=== PATIENT | male | born 1955 | race Caucasian/White ===

== ENCOUNTER → 2016-07-25 | Outpatient (REF) | payer MEDICARE, BC, OTHER ==
[~2016-07-25] MED LIST: ADVI200T PO; ASPI32ECTA PO; FLOM5CAP PO; LEXA1TAB2 PO; METO25TA74 PO; MOTR200T44 PO; PANT40TA2 PO; TYLE325T5 PO
== END ==
LOC: M LAB REF 16:33
PROVIDERS: ATTEND Physician Assistant
DX: N39.0 Urinary tract infection, site not specified (principal)

== ENCOUNTER → 2016-08-31 | Outpatient (REF) | payer MEDICARE, OTHER ==
[2016-08-31 15:47] LABS: ALBUMIN 3.8 GM/DL (3.2-5.2); ALBUMIN/GLOBULIN RATIO 1.23 (1.00-1.93); ALKALINE PHOSPHATASE 106 U/L (45-117); ALT/SGPT 41 U/L (12-78); ANION GAP 8 MEQ/L (8-16); AST/SGOT 35 U/L (15-37); BILIRUBIN,TOTAL 0.5 MG/DL (0.2-1.0); BLOOD UREA NITROGEN 23 MG/DL (7-18); CALCIUM LEVEL 8.6 MG/DL (8.8-10.2); CARBON DIOXIDE LEVEL 28 MEQ/L (21-32); CHLORIDE LEVEL 106 MEQ/L (98-107); CHOLESTEROL LEVEL 229 MG/DL (<200); CREATININE FOR GFR 1.06 MG/DL (0.70-1.30); GLOMERULAR FILTRATION RATE > 60.0 (>49); GLUCOSE, FASTING 115 MG/DL (80-110); POTASSIUM SERUM 4.4 MEQ/L (3.5-5.1); SODIUM LEVEL 142 MEQ/L (136-145); TOTAL PROTEIN 6.9 GM/DL (6.4-8.2); TRIGLYCERIDES LEVEL 145 MG/DL (<150)
== END ==
LOC: M SFHCSACK 09:14
PROVIDERS: ATTEND Physician Assistant
DX: I25.10 Atherosclerotic heart disease of native coronary artery without angina pectoris (principal); I10 Essential (primary) hypertension; E78.5 Hyperlipidemia, unspecified; E11.9 Type 2 diabetes mellitus without complications; E55.9 Vitamin D deficiency, unspecified

== ENCOUNTER → 2017-05-03 | Outpatient (REF) | payer MEDICARE, OTHER ==
[~2017-05-03] MED LIST changes: +ASPI325T24 PO; -ASPI32ECTA PO; +METO1TAB32 PO; -METO25TA74 PO; +VITA200016 PO
[2017-05-03 15:03] LABS: BASO # 0.1 10^3/uL (0.0-0.2); BASO % 0.7 % (0.0-1.0); EOS # 0.2 10^3/uL (0.0-0.50); EOS % 2.1 % (0.0-3.0); IMMATURE GRANULOCYTE % 0.4 % (0-0); LYMPH # 3.5 10^3/uL (1.5-4.5); LYMPH % 33.1 % (24.0-44.0); MEAN CORPUSCULAR HEMOGLOBIN 30.8 pg (27.0-33.0); MEAN CORPUSCULAR HGB CONC 34.3 g/dl (32.0-36.5); MEAN CORPUSCULAR VOLUME 89.8 fl (80.0-96.0); MONO # 0.6 10^3/uL (0.0-0.8); MONO % 5.9 % (0.0-5.0); NEUTROPHILS # 6.2 10^3/uL (1.8-7.7); NEUTROPHILS % 57.8 % (36.0-66.0); PLATELET COUNT, AUTOMATED 271 10^3/uL (150-450); RED CELL DISTRIBUTION WIDTH 12.6 % (11.5-14.5); WHITE BLOOD COUNT 10.7 10^3/uL (4.0-10.0)
[2017-05-03 15:16] LABS: ALBUMIN 3.9 GM/DL (3.2-5.2); ALBUMIN/GLOBULIN RATIO 1.22 (1.00-1.93); ALKALINE PHOSPHATASE 107 U/L (45-117); ALT/SGPT 48 U/L (12-78); ANION GAP 10 MEQ/L (8-16); AST/SGOT 15 U/L (7-37); BILIRUBIN,TOTAL 0.5 MG/DL (0.2-1.0); BLOOD UREA NITROGEN 23 MG/DL (7-18); CALCIUM LEVEL 8.6 MG/DL (8.8-10.2); CARBON DIOXIDE LEVEL 24 MEQ/L (21-32); CHLORIDE LEVEL 108 MEQ/L (98-107); CHOLESTEROL LEVEL 178 MG/DL (<200); CREATININE FOR GFR 1.23 MG/DL (0.70-1.30); GLOMERULAR FILTRATION RATE > 60.0 (>49); GLUCOSE, FASTING 152 MG/DL (80-110); POTASSIUM SERUM 4.5 MEQ/L (3.5-5.1); SODIUM LEVEL 142 MEQ/L (136-145); TOTAL PROTEIN 7.1 GM/DL (6.4-8.2); TRIGLYCERIDES LEVEL 200 MG/DL (<150)
== END ==
LOC: M SFHCSACK 08:18
PROVIDERS: ATTEND Physician Assistant
DX: E11.9 Type 2 diabetes mellitus without complications (principal); E78.5 Hyperlipidemia, unspecified; E55.9 Vitamin D deficiency, unspecified

== ENCOUNTER 2017-07-12 21:20 | Emergency (ER) | payer MEDICARE, BC, OTHER ==
[2017-07-12] MEDS: ONDANSETRON 4MG/2ML VIAL (J2405) IV (22:27)
[2017-07-12] MEDS: KETOROLAC 30 MG/ML VIAL (J1885) IV (22:27)
[2017-07-12] MEDS: NS 1,000 ML IV (22:28)
[2017-07-12 22:40] LABS: BASO % 0.3 % (0.0-1.0); HEMATOCRIT 46.2 % (42.0-52.0); HEMOGLOBIN 15.9 g/dl (14.0-18.0); IMMATURE GRANULOCYTE % 0.5 % (0-3.0); LYMPH # 0.9 10^3/uL (1.5-4.5); LYMPH % 6.3 % (24.0-44.0); MEAN CORPUSCULAR HEMOGLOBIN 30.2 pg (27.0-33.0); MEAN CORPUSCULAR HGB CONC 34.4 g/dl (32.0-36.5); MEAN CORPUSCULAR VOLUME 87.8 fl (80.0-96.0); MONO # 0.6 10^3/uL (0.0-0.8); MONO % 4.4 % (0.0-5.0); NEUTROPHILS % 88.5 % (36.0-66.0); PLATELET COUNT, AUTOMATED 244 10^3/uL (150-450); RED BLOOD COUNT 5.26 10^6/uL (4.30-6.10); RED CELL DISTRIBUTION WIDTH 12.6 % (11.5-14.5); WHITE BLOOD COUNT 13.6 10^3/uL (4.0-10.0)
[2017-07-12 22:50] LABS: INR 0.95; PROTHROMBIN TIME 12.8 SECONDS (12.4-14.5)
[2017-07-12 23:06] LABS: ALBUMIN 3.9 GM/DL (3.2-5.2); ALBUMIN/GLOBULIN RATIO 0.93 (1.00-1.93); ALKALINE PHOSPHATASE 128 U/L (45-117); ALT/SGPT 44 U/L (12-78); ANION GAP 10 MEQ/L (8-16); AST/SGOT 14 U/L (7-37); BILIRUBIN,DIRECT 0.1 MG/DL (0.0-0.2); BILIRUBIN,TOTAL 0.6 MG/DL (0.2-1.0); BLOOD UREA NITROGEN 13 MG/DL (7-18); CALCIUM LEVEL 8.8 MG/DL (8.8-10.2); CARBON DIOXIDE LEVEL 26 MEQ/L (21-32); CHLORIDE LEVEL 106 MEQ/L (98-107); CREATININE FOR GFR 1.42 MG/DL (0.70-1.30); GLOMERULAR FILTRATION RATE 54.1 (>49); GLUCOSE, FASTING 231 MG/DL (70-100); LIPASE 95 U/L (73-393); POTASSIUM SERUM 4.1 MEQ/L (3.5-5.1); SODIUM LEVEL 142 MEQ/L (136-145); TOTAL PROTEIN 8.1 GM/DL (6.4-8.2)
[2017-07-12 23:32] LABS: KETONE, URINE AUTO RFX 2+ mg/dL (NEGATIVE); LEUKOCYTE ESTERASE UR AUTO RFX NEGATIVE (NEGATIVE); MUCUS, URINE RFX SMALL (NEGATIVE); NITRITE, URINE AUTO RFX NEGATIVE (NEGATIVE); RBC, URINE AUTO RFX TNTC /HPF (0-3); SPECIFIC GRAVITY UR AUTO RFX 1.024 (1.002-1.035); SQUAM EPITHELIAL CELL UR AURFX 2 /HPF (0-6)
[2017-07-12 23:38] LABS: WBC, URINE AUTO RFX 15 /HPF (0-3)
== END 2017-07-13 00:08 | disposition home or self-care (01) ==
LOC: M ED 07-13 00:08
DX: N20.1 Calculus of ureter (principal); N28.1 Cyst of kidney, acquired; N23 Unspecified renal colic; R11.2 Nausea with vomiting, unspecified; R51 Headache; I51.9 Heart disease, unspecified; Z95.5 Presence of coronary angioplasty implant and graft; Z87.440 Personal history of urinary (tract) infections; Z79.899 Other long term (current) drug therapy; Z79.82 Long term (current) use of aspirin; Z79.84 Long term (current) use of oral hypoglycemic drugs
CPT/HCPCS: J2405

== ENCOUNTER 2017-08-06 18:45 | Emergency (ER) | payer MEDICARE, BC, OTHER ==
[2017-08-06] MEDS ORDERED: diphenhydrAMINE INJ 50MG/ML VIAL (J1200) As Ordered (19:32)
[2017-08-06] MEDS: HALOPERIDOL 5 MG/ML VIAL (J1630) IV (19:32)
[2017-08-06] MEDS: diphenhydrAMINE INJ 50MG/ML VIAL (J1200) IV (19:32)
[2017-08-06] MEDS ORDERED: HALOPERIDOL 5 MG/ML VIAL (J1630) As Ordered (19:33)
[2017-08-06] MEDS: NS 1,000 ML IV (19:45)
[2017-08-06 20:05] LABS: ANION GAP 8 MEQ/L (8-16); BLOOD UREA NITROGEN 16 MG/DL (7-18); CARBON DIOXIDE LEVEL 27 MEQ/L (21-32); CHLORIDE LEVEL 106 MEQ/L (98-107); CREATININE FOR GFR 1.17 MG/DL (0.70-1.30); GLOMERULAR FILTRATION RATE > 60.0 (>49); GLUCOSE, FASTING 158 MG/DL (70-100); POTASSIUM SERUM 3.9 MEQ/L (3.5-5.1); SODIUM LEVEL 141 MEQ/L (136-145)
== END 2017-08-06 21:15 | disposition home or self-care (01) ==
LOC: M ED 18:45
DX: H81.90 Unspecified disorder of vestibular function, unspecified ear (principal); I25.10 Atherosclerotic heart disease of native coronary artery without angina pectoris; E11.9 Type 2 diabetes mellitus without complications; E78.5 Hyperlipidemia, unspecified; K21.9 Gastro-esophageal reflux disease without esophagitis; Z87.442 Personal history of urinary calculi; Z95.1 Presence of aortocoronary bypass graft; Z86.79 Personal history of other diseases of the circulatory system
CPT/HCPCS: J1200

== ENCOUNTER → 2017-08-07 | Outpatient (REF) | payer MEDICARE, OTHER ==
[2017-08-07 14:21] LABS: BASO # 0.1 10^3/uL (0.0-0.2); BASO % 0.5 % (0.0-1.0); EOS # 0.3 10^3/uL (0.0-0.50); EOS % 2.5 % (0.0-3.0); HEMATOCRIT 41.6 % (42.0-52.0); HEMOGLOBIN 14.3 g/dl (14.0-18.0); IMMATURE GRANULOCYTE % 0.4 % (0-3.0); LYMPH # 4.3 10^3/uL (1.5-4.5); LYMPH % 34.9 % (24.0-44.0); MEAN CORPUSCULAR HEMOGLOBIN 30.5 pg (27.0-33.0); MEAN CORPUSCULAR HGB CONC 34.4 g/dl (32.0-36.5); MEAN CORPUSCULAR VOLUME 88.7 fl (80.0-96.0); MONO # 0.7 10^3/uL (0.0-0.8); MONO % 5.9 % (0.0-5.0); NEUTROPHILS # 6.8 10^3/uL (1.8-7.7); NEUTROPHILS % 55.8 % (36.0-66.0); PLATELET COUNT, AUTOMATED 230 10^3/uL (150-450); RED BLOOD COUNT 4.69 10^6/uL (4.30-6.10); RED CELL DISTRIBUTION WIDTH 12.9 % (11.5-14.5); WHITE BLOOD COUNT 12.2 10^3/uL (4.0-10.0)
[2017-08-07 14:38] LABS: ALBUMIN 3.6 GM/DL (3.2-5.2); ALBUMIN/GLOBULIN RATIO 1.16 (1.00-1.93); ALKALINE PHOSPHATASE 94 U/L (45-117); ALT/SGPT 49 U/L (12-78); ANION GAP 10 MEQ/L (8-16); AST/SGOT 19 U/L (7-37); BILIRUBIN,TOTAL 0.5 MG/DL (0.2-1.0); BLOOD UREA NITROGEN 13 MG/DL (7-18); CALCIUM LEVEL 8.3 MG/DL (8.8-10.2); CARBON DIOXIDE LEVEL 25 MEQ/L (21-32); CHLORIDE LEVEL 107 MEQ/L (98-107); CREATININE FOR GFR 0.98 MG/DL (0.70-1.30); GLOMERULAR FILTRATION RATE > 60.0 (>49); GLUCOSE, FASTING 126 MG/DL (70-100); POTASSIUM SERUM 4.1 MEQ/L (3.5-5.1); SODIUM LEVEL 142 MEQ/L (136-145); TOTAL PROTEIN 6.7 GM/DL (6.4-8.2)
[2017-08-07 14:49] LABS: ESTIMATED AVERAGE GLUCOSE 177 MG/DL (60-110); HEMOGLOBIN A1c 7.8 %
[2017-08-07 15:02] LABS: MAU/CREAT RATIO 6.4 MCG/MG (0.0-30.0)
[2017-08-07 15:15] LABS: TOTAL 25(OH) VITAMIN D 56.6 NG/ML (30.0-100.0)
== END ==
LOC: M SFHCSACK 08:17
DX: E55.9 Vitamin D deficiency, unspecified (principal); I10 Essential (primary) hypertension; E11.9 Type 2 diabetes mellitus without complications
CPT/HCPCS: 80053

== ENCOUNTER → 2018-07-28 | Outpatient (REF) | payer MEDICARE, OTHER ==
[~2018-07-28] MED LIST changes: -ASPI325T24 PO; +ASPI325T25 PO; +ATOR1TAB21; +FLOM0.4C39 PO; -FLOM5CAP PO; +MECL-68 PO; +METF500T13; +OMEP40CA2; -PANT40TA2 PO; +PANT40TA3 PO; +PERC5TAB12 PO; +ZOFR4TAB14 PO
[2018-07-28 15:00] LABS: BASO # 0.1 10^3/uL (0.0-0.2); BASO % 0.5 % (0.0-1.0); EOS # 0.3 10^3/uL (0.0-0.50); EOS % 2.7 % (0.0-3.0); HEMATOCRIT 44.4 % (42.0-52.0); HEMOGLOBIN 15.1 g/dl (13.5-17.5); LYMPH # 3.1 10^3/uL (1.5-4.5); LYMPH % 27.7 % (24.0-44.0); MEAN CORPUSCULAR HEMOGLOBIN 30.3 pg (27.0-33.0); MONO # 0.7 10^3/uL (0.0-0.8); MONO % 6.1 % (0.0-5.0); NEUTROPHILS # 6.9 10^3/uL (1.8-7.7); NEUTROPHILS % 62.6 % (36.0-66.0); PLATELET COUNT, AUTOMATED 268 10^3/uL (150-450); RED BLOOD COUNT 4.99 10^6/uL (4.30-6.10); WHITE BLOOD COUNT 11.1 10^3/uL (4.0-10.0)
[2018-07-28 15:13] LABS: ALBUMIN 4.1 GM/DL (3.2-5.2); ALT/SGPT 34 U/L (12-78); BILIRUBIN,TOTAL 0.9 MG/DL (0.2-1.0); BLOOD UREA NITROGEN 18 MG/DL (7-18); CALCIUM LEVEL 9.4 MG/DL (8.8-10.2); CARBON DIOXIDE LEVEL 23 MEQ/L (21-32); CHLORIDE LEVEL 105 MEQ/L (98-107); CHOLESTEROL LEVEL 133 MG/DL (<200); CHOLESTEROL RISK RATIO 3.325 (<5); CREATININE FOR GFR 0.99 MG/DL (0.70-1.30); GLOMERULAR FILTRATION RATE > 60.0 (>49); GLUCOSE, FASTING 124 MG/DL (70-100); HDL CHOLESTEROL 40 MG/DL (>40); LDL CHOLESTEROL 67 MG/DL (<100); NON-HDL-C 93 MG/DL; POTASSIUM SERUM 4.4 MEQ/L (3.5-5.1); SODIUM LEVEL 141 MEQ/L (136-145); TOTAL PROTEIN 7.1 GM/DL (6.4-8.2); TRIGLYCERIDES LEVEL 128 MG/DL (<150)
[2018-07-28 15:14] LABS: TOTAL 25(OH) VITAMIN D 55.1 NG/ML (30.0-100.0)
[2018-07-28 15:24] LABS: MALB URINE SIEMENS 52.8 MG/L; MAU/CREAT RATIO 18.2 MCG/MG (0.0-30.0)
[2018-07-28 15:34] LABS: HEMOGLOBIN A1c 7.5 %
== END ==
LOC: M SFHCSACK 09:20
PROVIDERS: ATTEND Physician Assistant
DX: I10 Essential (primary) hypertension (principal); E11.9 Type 2 diabetes mellitus without complications; E78.5 Hyperlipidemia, unspecified; E55.9 Vitamin D deficiency, unspecified

== ENCOUNTER → 2018-09-11 | Outpatient (REF) | payer MEDICARE, OTHER ==
[~2018-09-11] MED LIST changes: +ASPI-255 PO; -ASPI325T25 PO
[2018-09-11 19:47] LABS: CALCIUM LEVEL 8.8 MG/DL (8.8-10.2); CREATININE FOR GFR 1.33 MG/DL (0.70-1.30); POTASSIUM SERUM 4.3 MEQ/L (3.5-5.1)
[2018-09-11 20:01] LABS: BASO # 0.1 10^3/uL (0.0-0.2); BASO % 0.4 % (0.0-1.0); EOS % 0.1 % (0.0-3.0); HEMOGLOBIN 15.4 g/dl (13.5-17.5); LYMPH # 1.7 10^3/uL (1.5-4.5); LYMPH % 9.6 % (24.0-44.0); MEAN CORPUSCULAR HEMOGLOBIN 30.5 pg (27.0-33.0); MEAN CORPUSCULAR HGB CONC 34.2 g/dl (32.0-36.5); MEAN CORPUSCULAR VOLUME 89.1 fl (80.0-96.0); MONO # 1.6 10^3/uL (0.0-0.8); MONO % 8.8 % (0.0-5.0); NEUTROPHILS # 14.5 10^3/uL (1.8-7.7); NEUTROPHILS % 80.4 % (36.0-66.0); PLATELET COUNT, AUTOMATED 213 10^3/uL (150-450); RED BLOOD COUNT 5.05 10^6/uL (4.30-6.10)
== END ==
LOC: M LABDRWAD 19:06
PROVIDERS: ATTEND Physician Assistant
DX: N41.0 Acute prostatitis (principal)

== ENCOUNTER 2019-01-27 09:04 | Emergency (ER) | payer MEDICARE, BC, OTHER ==
[~2019-01-27] VITALS: Ht 170.2 cm; Wt 87.7 kg
[2019-01-27] MEDS ORDERED: OZEM2INJ (09:13)
[2019-01-27 11:15] LABS: BASO % 0.3 % (0.0-1.0); EOS # 0.3 10^3/uL (0.0-0.5); EOS % 2.5 % (0.0-3.0); HEMATOCRIT 44.5 % (42.0-52.0); LYMPH # 1.2 10^3/uL (1.5-5.0); LYMPH % 11.6 % (24.0-44.0); MEAN CORPUSCULAR HGB CONC 33.7 g/dl (32.0-36.5); MONO # 0.7 10^3/uL (0.0-0.8); MONO % 6.6 % (0.0-5.0); NEUTROPHILS # 8.2 10^3/uL (1.5-8.5); NEUTROPHILS % 78.6 % (36.0-66.0); PLATELET COUNT, AUTOMATED 212 10^3/uL (150-450); WHITE BLOOD COUNT 10.5 10^3/uL (4.0-10.0)
[2019-01-27 11:32] LABS: ALBUMIN 3.3 GM/DL (3.2-5.2); ALT/SGPT 38 U/L (12-78); AMYLASE 50 U/L (25-115); BILIRUBIN,DIRECT 0.1 MG/DL (0.0-0.2); BILIRUBIN,TOTAL 0.7 MG/DL (0.2-1.0); BLOOD UREA NITROGEN 8 MG/DL (7-18); CALCIUM LEVEL 8.9 MG/DL (8.8-10.2); CARBON DIOXIDE LEVEL 28 MEQ/L (21-32); CHLORIDE LEVEL 107 MEQ/L (98-107); CREATININE FOR GFR 1.01 MG/DL (0.70-1.30); GLOMERULAR FILTRATION RATE > 60.0 (>49); GLUCOSE, FASTING 126 MG/DL (70-100); LIPASE 89 U/L (73-393); SODIUM LEVEL 137 MEQ/L (136-145); TOTAL PROTEIN 7.3 GM/DL (6.4-8.2)
[2019-01-27] MEDS: GASTROGRAFIN SOLUTION 30ML PO SCH ×2 (11:36→12:05)
[2019-01-27] MEDS ORDERED: ISOVUE-370 76% 100ML VIAL (Q9967) As Ordered ONE (12:55)
--- NOTE | 2019-01-27 13:38 | REP ---
Clinical: Umbilical pain. Technique: Axial contrast enhanced images from the lung bases to the pubic symphysis using oral (per protocol) and 100 ml Isovue 370 intravenous contrast material with coronal and sagittal re-formations. Comparison: 09/30/2017. Findings: Lung bases are clear. Visualized heart and pericardium normal. Diffuse fatty infiltration to the liver noted without focal hepatic lesion. Spleen, pancreas, bilateral adrenal glands are normal. Cholelithiasis noted without acute cholecystitis. Kidneys demonstrate cortical scarring and bilateral cysts unchanged from prior examination and without hydronephrosis or perinephric stranding. The enteric system is without obstruction or acute inflammatory process. Scattered sigmoid diverticula noted without acute diverticulitis. Pelvis demonstrates normal bladder and age appropriate prostate/seminal vesicles. Small fat containing inguinal hernias are again identified. The patient is status post ventral hernia repair with mesh in stable position as compared to prior examination. No ascites. No free air. No adenopathy. Abdominal aorta and vasculature without aneurysm or dissection. Musculoskeletal structures demonstrate age-related changes without focal abnormality. Impression: 1. No obvious acute abdominopelvic pathology appreciated. 2. Cholelithiasis. 3. Stable renal cysts. 4. Scattered sigmoid diverticula without acute diverticulitis. 5. No ascites, focal inflammatory stranding, or adenopathy. Electronically Signed by Jonathan Seals MD 01/27/2019 01:29 P
[2019-01-27] MEDS ORDERED: KETOROLAC 30 MG/ML VIAL (J1885) IV ONE (13:45)
[2019-01-27 14:18] VITALS: BP 115/82
== END 2019-01-27 14:21 | disposition home or self-care (01) ==
LOC: M ED 09:04
DX: K42.9 Umbilical hernia without obstruction or gangrene (principal); S39.011A Strain of muscle, fascia and tendon of abdomen, initial encounter; I10 Essential (primary) hypertension; K21.9 Gastro-esophageal reflux disease without esophagitis; I25.10 Atherosclerotic heart disease of native coronary artery without angina pectoris; Z98.61 Coronary angioplasty status; E78.49 Other hyperlipidemia; Z79.82 Long term (current) use of aspirin; Y92.89 Other specified places as the place of occurrence of the external cause; Y93.9 Activity, unspecified; Y99.9 Unspecified external cause status
CPT/HCPCS: 74177; 80053; 82150; 82248; 83690; 85025; 96374; 99284; J1885; Q9963; Q9967

== ENCOUNTER → 2019-01-28 | Outpatient (REF) | payer MEDICARE, OTHER ==
[~2019-01-28] MED LIST changes: -MECL-68 PO; +MECL1TAB31 PO; -OMEP40CA2; +OMEP40CA97; +OZEM2INJ
[2019-01-28 14:39] LABS: RED BLOOD COUNT 4.84 10^6/uL (4.30-6.10); WHITE BLOOD COUNT 8.7 10^3/uL (4.0-10.0)
[2019-01-28 14:40] LABS: BASO # 0.1 10^3/uL (0.0-0.2); BASO % 0.6 % (0.0-1.0); EOS # 0.4 10^3/uL (0.0-0.5); EOS % 4.8 % (0.0-3.0); HEMATOCRIT 44.6 % (42.0-52.0); HEMOGLOBIN 15.1 g/dl (13.5-17.5); LYMPH # 1.9 10^3/uL (1.5-5.0); LYMPH % 22.2 % (24.0-44.0); MEAN CORPUSCULAR HEMOGLOBIN 31.2 pg (27.0-33.0); MEAN CORPUSCULAR HGB CONC 33.9 g/dl (32.0-36.5); MEAN CORPUSCULAR VOLUME 92.1 fl (80.0-96.0); MONO # 0.7 10^3/uL (0.0-0.8); MONO % 7.5 % (0.0-5.0); NEUTROPHILS # 5.6 10^3/uL (1.5-8.5); NEUTROPHILS % 64.6 % (36.0-66.0); PLATELET COUNT, AUTOMATED 243 10^3/uL (150-450)
[2019-01-28 14:53] LABS: ALBUMIN 3.4 GM/DL (3.2-5.2); ALT/SGPT 65 U/L (12-78); BILIRUBIN,TOTAL 0.5 MG/DL (0.2-1.0); BLOOD UREA NITROGEN 15 MG/DL (7-18); CALCIUM LEVEL 8.8 MG/DL (8.8-10.2); CARBON DIOXIDE LEVEL 27 MEQ/L (21-32); CHLORIDE LEVEL 106 MEQ/L (98-107); CHOLESTEROL LEVEL 226 MG/DL (<200); CHOLESTEROL RISK RATIO 4.612 (<5); CREATININE FOR GFR 0.99 MG/DL (0.70-1.30); GLOMERULAR FILTRATION RATE > 60.0 (>49); GLUCOSE, FASTING 142 MG/DL (70-100); HDL CHOLESTEROL 49 MG/DL (>40); LDL CHOLESTEROL 147 MG/DL (<100); NON-HDL-C 177 MG/DL; POTASSIUM SERUM 4.7 MEQ/L (3.5-5.1); SODIUM LEVEL 138 MEQ/L (136-145); TOTAL 25(OH) VITAMIN D 24.3 NG/ML (30.0-100.0); TOTAL PROTEIN 6.8 GM/DL (6.4-8.2); TRIGLYCERIDES LEVEL 152 MG/DL (<150)
== END ==
LOC: M SFHCSACK 08:46
PROVIDERS: ATTEND Physician Assistant
DX: I10 Essential (primary) hypertension (principal); E78.5 Hyperlipidemia, unspecified; E55.9 Vitamin D deficiency, unspecified

== ENCOUNTER → 2020-09-16 | Outpatient (CLI) | payer MEDICARE, BC, OTHER ==
[~2020-09-16] MED LIST changes: +PANT40TA29 PO; -PANT40TA3 PO
--- NOTE | 2020-09-16 12:49 | REP ---
INDICATION: N20.0-KIDNEY STONES. COMPARISON: Multiple the latest 01/27/2019 TECHNIQUE: Noncontrast enhanced stone protocol. FINDINGS: The lung bases are clear. There is cholelithiasis status quo. Limited evaluation of the solid intra-abdominal organs show no gross abnormalities. Limited evaluation of the pancreas and adrenal glands show no gross abnormalities. Limited evaluation of the kidney show no significant changes. There are bilateral renal cysts and bilateral nonobstructing nephroliths. There is unchanged chronic change to the right renal cortex. There is no significant change in appearance of the abdominal aorta or para-aortic regions. There is no free fluid or free air. There is no significant change in appearance of the bowel loops or the mesenteries. There are no urinary bladder calcifications. The osseous structures are stable. IMPRESSION: There is no evidence of acute disease. Chronic changes as described above. <Electronically signed by Matteo Jose > 09/16/20 [id number]
== END ==
LOC: M RAD 12:13
PROVIDERS: ATTEND Surgery
DX: N20.0 Calculus of kidney (principal); K80.20 Calculus of gallbladder without cholecystitis without obstruction

== ENCOUNTER 2021-02-02 09:41 | Inpatient (IN) | payer MEDICARE, BC, OTHER ==
[~2021-02-02] VITALS: Ht 170.2 cm; Wt 178.4 kg
[~2021-02-02 09:41] MED LIST changes: +OMEP40CA4; -OMEP40CA97
[2021-02-02 13:03] LABS: HEMATOCRIT 45.8 % (42.0-52.0); HEMOGLOBIN 15.7 g/dl (13.5-17.5); MEAN CORPUSCULAR HEMOGLOBIN 31.7 pg (27.0-33.0); MEAN CORPUSCULAR HGB CONC 34.3 g/dl (32.0-36.5); MEAN CORPUSCULAR VOLUME 92.5 fl (80.0-96.0); PLATELET COUNT, AUTOMATED 218 10^3/uL (150-450); RED BLOOD COUNT 4.95 10^6/uL (4.30-6.10); WHITE BLOOD COUNT 17.9 10^3/uL (4.0-10.0)
[2021-02-02 13:38] LABS: BILIRUBIN,DIRECT 0.3 MG/DL (0.0-0.2); BILIRUBIN,TOTAL 1.3 MG/DL (0.2-1.0); CALCIUM LEVEL 9.1 MG/DL (8.8-10.2); CREATININE FOR GFR 1.64 MG/DL (0.70-1.30); GLOMERULAR FILTRATION RATE 45.3 (>49); POTASSIUM SERUM 4.2 MEQ/L (3.5-5.1); TOTAL PROTEIN 7.5 GM/DL (6.4-8.2)
[2021-02-02] MEDS ORDERED: ACETAMINOPHEN *IV* 1,000 MG in IV 1 EA IV ONE (14:20)
[2021-02-02] MEDS ORDERED: cefTRIAXone SOD 1 GM in D5W MINI-BAG PLUS 50 ML IV ONE (14:20)
[2021-02-02] MEDS ORDERED: NS 1,000 ML IV ONE (14:20)
--- NOTE | 2021-02-02 14:41 | REP ---
INDICATION: R flank pain yesterday, now with abd pain/n/v. hx of pyelo COMPARISON: Comparison CT study abdomen and pelvis September 16, 2020. TECHNIQUE: Helical scanning is acquired and 3 mm axial images were reformatted. Coronal and sagittal MPR images were generated and reviewed. 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 The lung bases are clear on axial CT images. There is a small hiatal hernia. Normal adrenal glands are seen. A few punctate calcifications are noted distributed in the pancreas consistent with previous pancreatitis. There are the 3 fairly large gallstones visible in the gallbladder lumen. The liver and the spleen are normal in size homogeneous in texture. No adrenal lesion is seen. There are simple cysts in the left kidney which are felt to be unchanged from the prior study. There is also cyst at the upper pole the right kidney unchanged. There is however new moderate right-sided hydronephrosis and hydroureter. This is due to the presence of 3 separately identifiable obstructive calculi in the right mid ureter. The largest and lowest of these is 0.4 cm in greatest diameter. There is Lyudmila ureteral and perinephric edema. The distal right ureter is normal in caliber. There is an intrarenal calculus in the mid position of the left kidney 4 mm in diameter as well consistent with a nonobstructive calculus. No left-sided ureteral calculus is observed. No bladder calculus is seen. There is dystrophic calcification in the prostate gland. Seminal vesicles are unremarkable. A normal appendix is seen in the right pelvis. There is mild left colonic diverticulosis. No abdominal wall defect is seen. IMPRESSION: 1. Moderate new right-sided hydronephrosis and hydroureter due to the presence of 3 right mid ureteral calculi stacked up next to 1 another. There is Lyudmila ureteral and perinephric stranding. 2. Cholelithiasis 3. Bilateral renal cortical cysts. 4. Intrarenal nephrolithiasis left kidney without hydronephrosis. 5. Left colonic diverticulosis. 6. Hiatal hernia. <Electronically signed by Burton Mackay > 02/02/21 [id number]
[2021-02-02] MEDS ORDERED: MORPHINE 2 MG/ML 1ML VIAL (J2270) IV PRN (15:45)
--- NOTE | 2021-02-02 15:45 | SMCUROLCON ---
Urology Consultation General Date of Consultation 02/02/21 Reason For Consultation asked to see re right ureteral stones causing obstruction and pain History of Present Illness Pain and n/v. ER visit. Ct done. Right ureteral stones causing obstruction. H/o stones. H/o urethral stent as well. Past Medical History Medical History stones stroke cad s/p stent pfo htn hyperlipidemia diabetes gerd urethral stricture left renal abscess Surgical Hstory stone surgeries urethral stent surgeries Family History Family History not pertinent Social History * Smoker: non-smoker Allergies Allergies: Coded Allergies: No Known Allergies (Unverified , 03/21/17) Review of Systems General: Denies: Chills Constitutional: Denies: Fever Eyes: Denies: Vision change ENT: Denies: Head Aches Skin: Denies: Rash Pulmonary: Denies: Dyspnea Cardiovascular: Denies Chest Pain Gastrointestinal: Reports: Nausea, Vomiting Genitourinary: Denies: Dysuria Hematologic: Denies: Bruising Endocrine: Denies: Polydipsia Musculoskeletal: Denies: Neck Pain Neurological: Denies: Weakness Psych: Reports: Mood Normal Physical Examination General Exam: Alert, Cooperative EYE EXAM: Conjunctiva & lids normal ENT EXAM: Atraumatic Neck Exam: Supple Chest Exam: Clear to auscultation Heart Exam: Rate Normal Abdomen Exam: Soft, Tenderness Extremity Exam: No: Cyanosis Skin Exam: Nl turgor and temperature Neuro Exam: Normal Speech Psych Exam: Mental status NL Vital Signs/I&O Vital Signs Date Time Temp Pulse Resp B/P (MAP) Pulse Ox O2 Delivery O2 Flow Rate FiO2 02/02/21 15:38 97.9 85 16 123/68 (86) 99 Room Air Laboratory Data 24H Labs Laboratory Tests 2 02/02/21 10:39: Urine Color YELLOW, Urine Appearance HAZY, Urine pH 5.0, Urine Specific [place] 1.024, Urine Protein 1+H, Urine Glucose (UA) NEGATIVE, Urine Ketones 1+H, Urine Blood 1+H, Urine Nitrite NEGATIVE, Urine Bilirubin NEGATIVE, Urine Urobilinogen 2.0H, Urine Leukocyte Esterase 2+H, Urine WBC (Auto) 21H, Urine RBC (Auto) 14H, Urine Hyaline Casts (Auto) 1, Urine Bacteria (Auto) NEGATIVE, Urine Squamous Epithelial Cells 7, Urine Mucus (Auto) SMALL, Urine Sperm (Auto) 02/02/21 11:23: Bedside Glucose (Misc Panel) 135H 9/9/21 12:51: Nucleated Red Blood Cells % (auto) 0.0, Anion Gap 7L, Glomerular Filtration Rate 45.3L, Calcium Level 9.1, Total Bilirubin 1.3H, Direct Bilirubin 0.3H, Aspartate Amino Transf (AST/SGOT) 10, Alanine Aminotransferase (ALT/SGPT) 19, Alkaline Phosphatase 80, Total Protein 7.5, Albumin 4.0, Albumin/Globulin Ratio 1.1 02/02/21 15:00: CBC/BMP Laboratory Tests 02/02/21 12:51 Microbiology Microbiology 02/02/21 Urine Culture, Received Pending Assessment Ct shows right ureteral stones causing hydronephrosis. Pain and n/v today. Wbc and creatinine elevated. No fevers. Plan Urology plan is cysto with stent placement sometime today. Covid testing pending. Discussed with ER provider and OR charge nurse. Will see pt soon. Hospitalist service to kindly admit pt. VASYL HOLLIDAY MD Feb 02, 2021 15:45
[2021-02-02 15:48] LABS: RSV AMPLIFICATION NEGATIVE (NEGATIVE)
[2021-02-02] MEDS ORDERED: DEXTROSE 50% 50 ML SYRINGE IV PRN (16:20)
[2021-02-02] MEDS ORDERED: GLUCAGON INJ 1MG VIAL SC PRN (16:20)
[2021-02-02] MEDS ORDERED: GLUCOSE 4GM CHEW TABLET PO PRN (16:20)
--- NOTE | 2021-02-02 16:37 | HPEPDOC ---
General Date of Admission Feb 02, 2021 at 15:42 Date of Service: Feb 02, 2021 Chief Complaint The patient is a 65-year-old male admitted with a reason for visit of Guillermo, Ureteric Stone. History of Present Illness 65-year-old male with past medical history of kidney stones, urethral stricture status post reconstruction, CAD status post stent in 2009, hypertension, hyperlipidemia, CVA, PFO, GERD, brain aneurysm, diabetes, short-term memory loss, left renal abscess in July 2020 presented to the emergency room 2 day history of severe right lower back pain sharp aching and colicky in nature 01/03 by intensity radiating across the side to the groin associated with nausea and several episodes of vomiting. He was found to have right ureteral stone with right hydronephrosis. On my interview patient says that the pain has already gone and says the stone has likely moved. He says that the pain went away while he was sitting in the waiting room. Patient was noted to be febrile at 100.7 in the ED. urology was consulted and plan is for him to go to OR for cystoscopy and stent placement. CT scan of the abdomen and pelvis showed moderate right-sided hydronephrosis and hydroureter. This is due to the presence of 3 separately identifiable obstructive calculi in the right mid,ureter. The largest and lowest of these is 0.4 cm in greatest diameter. There is Lyudmila ureteral and perinephric edema. The distal right ureter is normal in caliber. There is an intrarenal calculus in the mid position of the left kidney 4 mm in diameter as well consistent with a nonobstructive calculus. No left-sided ureteral calculus is observed. Home Medications Scheduled Aspirin (Aspirin EC) 325 Mg Tabec, 325 MG PO DAILY, (Reported) Cholecalciferol (Vitamin D3) (Vitamin D3) 2,000 Unit Cap, 50,000 UNIT PO 1XWK, (Reported) Metformin HCl (Metformin HCl) 500 Mg Tab, 500 MG BID, (Reported) Semaglutide (Ozempic) 0.25 Mg/0.2 Ml Pen.injctr, QWEEK, (Reported) Miscellaneous Medications Omeprazole (Omeprazole) 40 Mg Cap, (Reported) Allergies Coded Allergies: No Known Allergies (Unverified , 03/21/17) Past Medical History Medical History kidney stones, urethral stricture status post reconstruction, CAD status post stent in 2009, hypertension, hyperlipidemia, CVA, PFO, GERD, brain aneurysm, diabetes, short-term memory loss, left renal abscess in July 2020, diverticulosis, hiatal hernia, gallstones Surgical History COLONOSCOPY 03/2017 MULTIPLE URETHRAL DILATIONS AND DVIUS 1978 - 1998 PENILE SKIN GRAFT FOR URETHRAL STRICTURE 1998 UROLUME STENT PLACED DUE TO URETHRAL STRICTURE 1999 RECONSTRUCTED URETHRA 11/2017 URETHRAL SCOPE 02/2019 Family History FATHER: , WHEN PANCREAS EXPLODED MOTHER: , CANCER UNKNOWN Social History * Smoker: former Smoker Alcohol: rarely Drugs: denies A-FIB/CHADSVASC A-FIB History Current/History of A-Fib/PAF?: No Review of Systems Constitutional: Denies: Chills, Fever, Night Sweats Eyes: Denies: Pain, Vision change ENT: Denies: Head Aches, Ear Pain, Dysphagia Skin: Denies: Rash, Lesions, Breakdown Pulmonary: Denies: Dyspnea, Cough Cardiovascular: Denies: Chest Pain, Palpitations, Orthopnea, Paroxysmal Noc. Dyspnea, Lt Headedness Gastrointestinal: Reports: Nausea, Vomiting, Abdominal Pain Genitourinary: Denies: Dysuria, Frequency, Incontinence, Hematuria Hematologic: Denies: Bruising, Bleeding Excessively Musculoskeletal: Reports: Back Pain; Denies: Neck Pain, Joint Pain, Muscle Pain, Spasms Physical Examination General Exam: Positive: Alert, Cooperative, No Acute Distress Eye Exam: Positive: PERRLA, Conjunctiva & lids normal, EOMI; Negative: Sclera icteric ENT Exam: Positive: Atraumatic, Mucous membr. moist/pink, Pharynx Normal Neck Exam: Positive: Supple; Negative: JVD, thyromegaly Chest Exam: Positive: Clear to auscultation, Normal air movement Heart Exam: Positive: Rate Normal, Regular Rhythm, Normal S1, Normal S2; Negative: Murmurs, Rubs Abdomen Exam: Positive: Normal bowel sounds, Soft; Negative: Tenderness Extremity Exam: Positive: Normal pulses; Negative: Clubbing, Cyanosis, Edema Skin Exam: Positive: Nl turgor and temperature; Negative: Breakdown, Lesion Psych Exam: Positive: Memory Intact, Oriented x 3 Vital Signs Vital Signs Date Time Temp Pulse Resp B/P (MAP) Pulse Ox O2 Delivery O2 Flow Rate FiO2 02/02/21 16:14 100.7 85 18 132/66 (88) 100 Room Air Laboratory Data Labs 24H Laboratory Tests 2 02/02/21 10:39: Urine Color YELLOW, Urine Appearance HAZY, Urine pH 5.0, Urine Specific [place] 1.024, Urine Protein 1+H, Urine Glucose (UA) NEGATIVE, Urine Ketones 1+H, Urine Blood 1+H, Urine Nitrite NEGATIVE, Urine Bilirubin NEGATIVE, Urine Urobilinogen 2.0H, Urine Leukocyte Esterase 2+H, Urine WBC (Auto) 21H, Urine RBC (Auto) 14H, Urine Hyaline Casts (Auto) 1, Urine Bacteria (Auto) NEGATIVE, Urine Squamous Epithelial Cells 7, Urine Mucus (Auto) SMALL, Urine Sperm (Auto) 02/02/21 11:23: Bedside Glucose (Misc Panel) 135H 02/02/21 12:51: Nucleated Red Blood Cells % (auto) 0.0, Anion Gap 7L, Glomerular Filtration Rate 45.3L, Calcium Level 9.1, Total Bilirubin 1.3H, Direct Bilirubin 0.3H, Aspartate Amino Transf (AST/SGOT) 10, Alanine Aminotransferase (ALT/SGPT) 19, Alkaline Phosphatase 80, Total Protein 7.5, Albumin 4.0, Albumin/Globulin Ratio 1.1 02/02/21 15:00: Coronavirus (COVID-19)(PCR) NEGATIVE, Influenza Type A (RT-PCR) NEGATIVE, Influenza Type B (RT-PCR) NEGATIVE, Respiratory Syncytial Virus (PCR) NEGATIVE 02/02/21 16:15: Bedside Glucose (Misc Panel) 129H CBC/BMP Laboratory Tests 02/02/21 12:51 Microbiology Microbiology 02/02/21 Urine Culture, Received Pending Assessment/Plan 65-year-old male with past medical history of kidney stones, urethral stricture status post reconstruction, CAD status post stent in 2009, hypertension, hyperlipidemia, CVA, PFO, GERD, brain aneurysm, diabetes, short-term memory loss, left renal abscess in July 2020 presented to the emergency room 2 day history of severe right lower back pain sharp aching and colicky in nature 8/10 by intensity radiating across the side to the groin associated with nausea and several episodes of vomiting. He was found to have right ureteral stone with right hydronephrosis. Right ureteric stone with right hydronephrosis Dr. Bee from urology consulted and he plans on taking the patient to the OR for stent placement Elevated white count will give ceftriaxone Urine sent for culture GUILLERMO Likely due to obstructive uropathy though I do not have any recent blood work for the past 2 years. We will have to see if his creatinine improves with relief of obstruction and hydration that he got in the ED. History of hypertension Not on any meds at present BP low normal in the ED History of hyperlipidemia Has resolved Not on any meds at present Diabetes We will hold Metformin We will give lispro as per sliding scale once patient is out of OR and taking p.o. History of CAD status post stent We will continue aspirin GERD We will continue me Plan / VTE VTE Prophylaxis Ordered?: Yes Madelyn Neff MD Feb 02, 2021 16:37
[2021-02-02] MEDS ORDERED: CONRAY-60 60% 50ML VIAL (Q9961) As Ordered ONE (16:44)
[2021-02-02] MEDS ORDERED: ONDANSETRON 4MG/2ML VIAL As Ordered ONE (16:45)
[2021-02-02] MEDS ORDERED: dexameTHASONE 4 MG/ML 1ML VIAL (J1100 PER 1MG) As Ordered ONE (16:45)
[2021-02-02] MEDS ORDERED: fentaNYL 100 MCG/2 ML INJECTION (J3010) As Ordered ONE (16:45)
[2021-02-02] MEDS ORDERED: propofoL 200 MG/20 ML VIAL As Ordered ONE (16:45)
[2021-02-02] MEDS ORDERED: MIDAZOLAM INJ 2MG/2ML VIAL (J2250 PER 1MG) As Ordered ONE (16:45)
[2021-02-02] MEDS ORDERED: LIDOCAINE 2% 100MG/5ML SDV (FOR ANES.) As Ordered ONE (16:45)
[2021-02-02] MEDS ORDERED: ONDANSETRON 4MG/2ML VIAL IV PRN ×2 (17:05→17:25)
--- NOTE | 2021-02-02 17:07 | REP ---
INDICATION: STENT PLACEMENT. COMPARISON: None. TECHNIQUE: Single spot view. 0.01 seconds of fluoroscopy time is reported. FINDINGS: A single last image hold fluoroscopically obtained spot radiograph of the abdomen documents right ureteral stent position. IMPRESSION: Procedural imaging. <Electronically signed by Burton Mackay > 02/02/21 0540
--- NOTE | 2021-02-02 17:16 | IPNPDOC ---
Date Seen The patient was seen on 02/02/21. Progress Note pt s/p right stent placement gu plan is ureteroscopy with stone extraction in future, not this admit ivf iv antibiotic repeat blood work pt on hospitalist service thanks [phone] VS, I&O, 24H, Fishbone Vital Signs/I&O Vital Signs Date Time Temp Pulse Resp B/P (MAP) Pulse Ox O2 Delivery O2 Flow Rate FiO2 02/02/21 16:14 100.7 85 18 132/66 (88) 100 Room Air Laboratory Data 24H LABS Laboratory Tests 2 02/02/21 10:39: Urine Color YELLOW, Urine Appearance HAZY, Urine pH 5.0, Urine Specific [place] 1.024, Urine Protein 1+H, Urine Glucose (UA) NEGATIVE, Urine Ketones 1+H, Urine Blood 1+H, Urine Nitrite NEGATIVE, Urine Bilirubin NEGATIVE, Urine Urobilinogen 2.0H, Urine Leukocyte Esterase 2+H, Urine WBC (Auto) 21H, Urine RBC (Auto) 14H, Urine Hyaline Casts (Auto) 1, Urine Bacteria (Auto) NEGATIVE, Urine Squamous Epithelial Cells 7, Urine Mucus (Auto) SMALL, Urine Sperm (Auto) 02/02/21 11:23: Bedside Glucose (Misc Panel) 135H 02/02/21 12:51: Nucleated Red Blood Cells % (auto) 0.0, Anion Gap 7L, Glomerular Filtration Rate 45.3L, Calcium Level 9.1, Total Bilirubin 1.3H, Direct Bilirubin 0.3H, Aspartate Amino Transf (AST/SGOT) 10, Alanine Aminotransferase (ALT/SGPT) 19, Alkaline Phosphatase 80, Total Protein 7.5, Albumin 4.0, Albumin/Globulin Ratio 1.1 02/02/21 15:00: Coronavirus (COVID-19)(PCR) NEGATIVE, Influenza Type A (RT-PCR) NEGATIVE, Influenza Type B (RT-PCR) NEGATIVE, Respiratory Syncytial Virus (PCR) NEGATIVE 02/02/21 16:15: Bedside Glucose (Misc Panel) 129H CBC/BMP Laboratory Tests 02/02/21 12:51 Microbiology Microbiology 02/02/21 Urine Culture, Received Pending VASYL HOLLIDAY MD Feb 02, 2021 17:16
[2021-02-02] MEDS ORDERED: fentaNYL 100 MCG/2 ML INJECTION (J3010) IV PRN (17:25)
[2021-02-02] MEDS ORDERED: oxyCODONE 5MG TAB PO PRN (17:25)
[2021-02-02] MEDS ORDERED: METOCLOPRAMIDE INJ 10MG/2ML VIAL (J2765 PER 1) IV PRN (17:25)
[2021-02-02] MEDS ORDERED: LR 1,000 ML IV SCH (17:25)
[2021-02-02 17:45] VITALS: BP 129/68
[2021-02-02 18:15] VITALS: BP 116/63
[2021-02-02] MEDS: D5W/0.45% SODIUM CHLORIDE 1,000 ML IV SCH (18:27)
[2021-02-02] MEDS: HumaLOG INSULIN (NovoLOG) PER UNIT SC SCH (18:44)
[2021-02-02 18:45] VITALS: BP 116/64
[2021-02-02] MEDS: PHENAZOPYRIDINE 100 MG TAB PO SCH (20:38)
[2021-02-02] MEDS: oxyBUTYnin 5 MG TAB PO SCH (20:38)
[2021-02-02 20:45] VITALS: BP 138/78
[2021-02-02] MEDS ORDERED: HumaLOG INSULIN (NovoLOG) PER UNIT SC SCH (21:00)
[2021-02-02] MEDS ORDERED: OZEM2INJ SC (21:07)
[2021-02-02] MEDS ORDERED: OMEP1CAP73 PO (21:07)
[2021-02-02] MEDS ORDERED: METF-838 PO (21:07)
[2021-02-02] MEDS ORDERED: HOME MED LIST COMPLETE! XX SCH (21:10)
[2021-02-02 21:45] VITALS: BP 105/60
[2021-02-02 22:48] VITALS: BP 136/82
[2021-02-03] MEDS: D5W/0.45% SODIUM CHLORIDE 1,000 ML IV SCH (04:59)
[2021-02-03 06:00] VITALS: BP 118/67
[2021-02-03 06:09] LABS: BASO % 0.1 % (0.0-1.0); HEMATOCRIT 38.2 % (42.0-52.0); LYMPH # 0.9 10^3/uL (1.5-5.0); LYMPH % 7.6 % (24.0-44.0); MEAN CORPUSCULAR HEMOGLOBIN 31.4 pg (27.0-33.0); MEAN CORPUSCULAR HGB CONC 34.6 g/dl (32.0-36.5); MEAN CORPUSCULAR VOLUME 90.7 fl (80.0-96.0); MONO # 0.7 10^3/uL (0.0-0.8); MONO % 5.4 % (2.0-8.0); NEUTROPHILS # 10.6 10^3/uL (1.5-8.5); NEUTROPHILS % 86.5 % (36.0-66.0); PLATELET COUNT, AUTOMATED 192 10^3/uL (150-450); RED BLOOD COUNT 4.21 10^6/uL (4.30-6.10); WHITE BLOOD COUNT 12.3 10^3/uL (4.0-10.0)
[2021-02-03 06:10] LABS: BLOOD UREA NITROGEN 17 MG/DL (7-18); CALCIUM LEVEL 8.3 MG/DL (8.8-10.2); CARBON DIOXIDE LEVEL 24 MEQ/L (21-32); CHLORIDE LEVEL 109 MEQ/L (98-107); CREATININE FOR GFR 0.96 MG/DL (0.70-1.30); GLOMERULAR FILTRATION RATE > 60.0 (>49); GLUCOSE, FASTING 143 MG/DL (70-100); POTASSIUM SERUM 4.2 MEQ/L (3.5-5.1); SODIUM LEVEL 139 MEQ/L (136-145)
[2021-02-03 06:21] LABS: HEMOGLOBIN 13.2 g/dl (13.5-17.5)
[2021-02-03] MEDS: oxyBUTYnin 5 MG TAB PO SCH (08:41)
[2021-02-03] MEDS: HumaLOG INSULIN (NovoLOG) PER UNIT SC SCH ×2 (08:41→12:00)
[2021-02-03] MEDS: PHENAZOPYRIDINE 100 MG TAB PO SCH (08:41)
[2021-02-03] MEDS ORDERED: FLUBLOK(EGG FREE)(QUAD)INFLUENZA VACC 0.5ML SYRINGE 18YRS & OLDER IM ONE (09:00)
[2021-02-03] MEDS ORDERED: cefTRIAXone SOD 1 GM in D5W MINI-BAG PLUS 50 ML IV SCH ×2 (10:00→14:00)
[2021-02-03] MEDS ORDERED: CEFD1CAP8 PO (12:27)
[2021-02-03] MEDS ORDERED: OXYB5TAB10 PO (12:27)
[2021-02-03] MEDS ORDERED: PHEN1TAB73 PO (13:24)
--- NOTE | 2021-02-03 13:26 | DS.PDOC ---
Discharge Summary General Date of Admission Feb 02, 2021 at 15:42 Date of Discharge 02/03/21 Discharge Summary PROCEDURES PERFORMED DURING STAY: Cystoscopy and right ureteral stent placement. DISCHARGE DIAGNOSES: Right ureteric stones with right hydronephrosis GUILLERMO SECONDARY DIAGNOSIS: Kidney stones, urethral stricture status post reconstruction, CAD status post stent in 2009, hypertension, hyperlipidemia, CVA, PFO, GERD, brain aneurysm, diabetes, short-term memory loss, left renal abscess in July 2020 COMPLICATIONS/CHIEF COMPLAINT: Guillermo, Ureteric Stone. HOSPITAL COURSE:65-year-old male with past medical history of kidney stones, urethral stricture status post reconstruction, CAD status post stent in 2009, hypertension, hyperlipidemia, CVA, PFO, GERD, brain aneurysm, diabetes, short- term memory loss, left renal abscess in July 2020 presented to the emergency room 2 day history of severe right lower back pain sharp aching and colicky in nature 01/03 by intensity radiating across the side to the groin associated with nausea and several episodes of vomiting. He was found to have right ureteral stone with right hydronephrosis. Right ureteric stones with right hydronephrosis s/p cysto and right ureteral stent placement will ultimately need ureteroscopy and stone removal but not in this admission as per urologist Dr Bee Has h/o urethral strictures and multiple procedures in the urethra and urethral stent before Continue Pyridium and oxybutynin. Will give cefdinir. Follow-up urine cultures GUILLERMO due to obstructive uropathy now resolved History of hypertension Not on any meds at present History of hyperlipidemia Has resolved Not on any meds at present Diabetes continue home meds History of CAD status post stent We will continue aspirin GERD We will continue omeprazole DISCHARGE MEDICATIONS: Please see below. ALLERGIES: Please see below. PHYSICAL EXAMINATION ON DISCHARGE: VITAL SIGNS: Please see below. General Exam: Positive: Alert, Cooperative, No Acute Distress Eye Exam: Positive: PERRLA, Conjunctiva & lids normal, EOMI; Negative: Sclera icteric ENT Exam: Positive: Atraumatic, Mucous membr. moist/pink, Pharynx Normal Neck Exam: Positive: Supple; Negative: JVD, thyromegaly Chest Exam: Positive: Clear to auscultation, Normal air movement Heart Exam: Positive: Rate Normal, Regular Rhythm, Normal S1, Normal S2; Negative: Murmurs, Rubs Abdomen Exam: Positive: Normal bowel sounds, Soft; Negative: Tenderness Extremity Exam: Positive: Normal pulses; Negative: Clubbing, Cyanosis, Edema Skin Exam: Positive: Nl turgor and temperature; Negative: Breakdown, Lesion Psych Exam: Positive: Memory Intact, Oriented x 3 LABORATORY DATA: Please see below. ACTIVITY: [As tolerated]. DIET: Carb consistent DISCHARGE PLAN: Home DISCHARGE INSTRUCTIONS: Urology in 2 weeks PMD in 1 week Follow-up final urine culture DISCHARGE CONDITION: [Stable]. TIME SPENT ON DISCHARGE: 35 minutes. Vital Signs/I&Os Vital Signs Date Time Temp Pulse Resp B/P (MAP) Pulse Ox O2 Delivery O2 Flow Rate FiO2 02/03/21 06:00 98.3 61 17 118/67 (84) 95 Room Air I&O- Last 24 Hours up to 6 AM 02/03/21 06:00 Intake Total 2380 ml Output Total 1225 ml Balance 1155 ml Laboratory Data Labs 24H Laboratory Tests 2 02/02/21 10:39: Urine Color YELLOW, Urine Appearance HAZY, Urine pH 5.0, Urine Specific [place] 1.024, Urine Protein 1+H, Urine Glucose (UA) NEGATIVE, Urine Ketones 1+H, Urine Blood 1+H, Urine Nitrite NEGATIVE, Urine Bilirubin NEGATIVE, Urine Urobilinogen 2.0H, Urine Leukocyte Esterase 2+H, Urine WBC (Auto) 21H, Urine RBC (Auto) 14H, Urine Hyaline Casts (Auto) 1, Urine Bacteria (Auto) NEGATIVE, Urine Squamous Epithelial Cells 7, Urine Mucus (Auto) SMALL, Urine Sperm (Auto) 02/02/21 11:23: Bedside Glucose (Misc Panel) 135H 02/02/21 12:51: Nucleated Red Blood Cells % (auto) 0.0, Anion Gap 7L, Glomerular Filtration Rate 45.3L, Calcium Level 9.1, Total Bilirubin 1.3H, Direct Bilirubin 0.3H, Aspartate Amino Transf (AST/SGOT) 10, Alanine Aminotransferase (ALT/SGPT) 19, Alkaline Phosphatase 80, Total Protein 7.5, Albumin 4.0, Albumin/Globulin Ratio 1.1 02/02/21 15:00: Coronavirus (COVID-19)(PCR) NEGATIVE, Influenza Type A (RT-PCR) NEGATIVE, Influ colleen Type B (RT-PCR) NEGATIVE, Respiratory Syncytial Virus (PCR) NEGATIVE 02/02/21 16:15: Bedside Glucose (Misc Panel) 129H 02/02/21 17:59: Bedside Glucose (Misc Panel) 123H 02/02/21 20:34: Bedside Glucose (Misc Panel) 261H 02/03/21 05:32: Immature Granulocyte % (Auto) 0.4, Neutrophils (%) (Auto) 86.5H, Lymphocytes (%) (Auto) 7.6L, Monocytes (%) (Auto) 5.4, Eosinophils (%) (Auto) 0.0, Basophils (%) (Auto) 0.1, Neutrophils # (Auto) 10.6H, Lymphocytes # (Auto) 0.9L, Monocytes # (Auto) 0.7, Eosinophils # (Auto) 0.0, Basophils # (Auto) 0.0, Nucleated Red Blood Cells % (auto) 0.0, Anion Gap 6L, Glomerular Filtration Rate > 60.0, Calcium Level 8.3L CBC/BMP Laboratory Tests 02/02/21 12:51 02/03/21 05:32 FSBS Laboratory Tests Test 02/02/21 11:23 02/02/21 16:15 02/02/21 17:59 02/02/21 20:34 Range/Units Bedside Glucose (Misc Panel) 135 129 123 261 80-115 MG/DL Microbiology Microbiology 02/02/21 Urine Culture, Received Pending Discharge Medications Scheduled Aspirin (Aspirin EC) 325 Mg Tabec, 325 MG PO QHS, (Reported) Cefdinir (Cefdinir) 300 Mg Capsule, 1 CAP PO BID Metformin HCl (Metformin HCl ER) 500 Mg Tab.er.24h, 1,000 MG PO QHS, (Reported) Oxybutynin Chloride (Oxybutynin Chloride) 5 Mg Tablet, 5 MG PO BID Phenazopyridine HCl (Phenazopyridine HCl) 100 Mg Tablet, 100 MG PO BID Semaglutide (Ozempic) 0.25 Mg/0.2 Ml Pen.injctr, 0.25 MG SC QWEEK, (Reported) SATURDAY NIGHTS Scheduled PRN Omeprazole (Omeprazole) 20 Mg Capsule.dr, 20 MG PO DAILY PRN for ACID REFLUX, (Reported) Allergies Coded Allergies: No Known Allergies (Unverified , 03/21/17) Madelyn Neff MD Feb 03, 2021 08:44
== END 2021-02-03 14:20 | disposition home or self-care (01) | DRG 661 ==
LOC: M ED 09:41 → M ED INP 15:42 → M MSPAV 17:54
PROVIDERS: ADMIT Internal Medicine Nephrology; ATTEND Internal Medicine Nephrology
PROC: 0T768DZ Dilation of Right Ureter with Intraluminal Device, Via Natural or Artificial Opening Endoscopic (ICD-10-PCS; principal; 2021-02-02 15:40)
DX: N13.2 Hydronephrosis with renal and ureteral calculous obstruction (principal); N17.9 Acute kidney failure, unspecified; I10 Essential (primary) hypertension; E11.9 Type 2 diabetes mellitus without complications; I25.10 Atherosclerotic heart disease of native coronary artery without angina pectoris; Z95.2 Presence of prosthetic heart valve; E78.5 Hyperlipidemia, unspecified; Z86.73 Personal history of transient ischemic attack (TIA), and cerebral infarction without residual deficits; K21.9 Gastro-esophageal reflux disease without esophagitis; Z79.82 Long term (current) use of aspirin; Z79.899 Other long term (current) drug therapy; Z87.891 Personal history of nicotine dependence

== ENCOUNTER → 2021-03-17 | Outpatient (CLI) | payer MEDICARE, BC, OTHER ==
[~2021-03-17] MED LIST changes: +CEFD1CAP8 PO; +METF-838 PO; +OMEP1CAP73 PO; +OXYB5TAB10 PO; +OZEM2INJ SC; +PHEN1TAB73 PO
== END ==
LOC: M LABSMTC 10:51
PROVIDERS: ATTEND Urology
DX: Z01.812 Encounter for preprocedural laboratory examination (principal); Z20.822 Contact with and (suspected) exposure to COVID-19; N20.1 Calculus of ureter

== ENCOUNTER → 2022-02-05 | Outpatient (CLI) | payer MEDICARE, BC, OTHER ==
[~2022-02-05] MED LIST changes: -CEFD1CAP8 PO; +CEFD300C41 PO
== END ==
LOC: M WUC 14:34
PROVIDERS: ATTEND Physician Assistant Medical
DX: M51.9 Unspecified thoracic, thoracolumbar and lumbosacral intervertebral disc disorder (principal); M25.78 Osteophyte, vertebrae

== ENCOUNTER → 2022-08-30 | Outpatient (REF) | payer MEDICARE, BC, OTHER ==
[~2022-08-30] MED LIST changes: +DOXY-443; +TRAM50TA2
== END ==
LOC: M LAB REF 16:25
PROVIDERS: ATTEND Physician Assistant Medical
DX: N39.0 Urinary tract infection, site not specified (principal)

== ENCOUNTER 2022-09-07 11:18 | Emergency (ER) | payer BC, MEDICARE, OTHER ==
[~2022-09-07] VITALS: Ht 170.2 cm; Wt 84.1 kg
[~2022-09-07 11:18] MED LIST changes: -DOXY-443; -TRAM50TA2
[2022-09-07] MEDS ORDERED: TRAM50TA2 (11:40)
[2022-09-07] MEDS ORDERED: DOXY-443 (11:40)
[2022-09-07 14:08] VITALS: BP 176/86
== END 2022-09-07 14:50 | disposition home or self-care (01) ==
LOC: M ED 11:18
DX: S00.03XA Contusion of scalp, initial encounter (principal); M54.30 Sciatica, unspecified side; W10.8XXA Fall (on) (from) other stairs and steps, initial encounter; E11.9 Type 2 diabetes mellitus without complications; I10 Essential (primary) hypertension; E78.5 Hyperlipidemia, unspecified; M54.50 Low back pain, unspecified; Z86.79 Personal history of other diseases of the circulatory system; Z79.82 Long term (current) use of aspirin; Z79.83 Long term (current) use of bisphosphonates; Z79.899 Other long term (current) drug therapy

== ENCOUNTER → 2022-09-27 | Outpatient (CLI) | payer MEDICARE ==
[~2022-09-27] MED LIST changes: +DOXY-443; +TRAM50TA2
== END ==
LOC: M RAD 07:40
PROVIDERS: ATTEND Internal Medicine
DX: M54.16 Radiculopathy, lumbar region (principal)

== ENCOUNTER → 2022-10-18 | Outpatient (REF) | payer MEDICARE | LOC: M LAB REF 09:50 | PROVIDERS: ATTEND Student in an Organized Health Care Education/Training Program | DX: R30.0 Dysuria (principal) ==

== ENCOUNTER → 2023-04-16 | Outpatient (REF) | payer MEDICARE ==
[~2023-04-16] MED LIST changes: -CEFD300C41 PO; +CEFD300C42 PO; +MECL-209 PO; -MECL1TAB31 PO; -OXYB5TAB10 PO; +OXYB5TAB11 PO
== END ==
LOC: M LAB REF 11:37
PROVIDERS: ATTEND Internal Medicine
DX: R30.0 Dysuria (principal)

== ENCOUNTER → 2023-04-23 | Outpatient (REF) | payer MEDICARE ==
[2023-04-23 13:39] LABS: APPEARANCE, URINE HAZY (CLEAR); BACTERIA, URINE AUTO 1+ (NEGATIVE); BILIRUBIN, URINE AUTO NEGATIVE (NEGATIVE); BLOOD, URINE BLOOD NEGATIVE (NEGATIVE); COLOR, URINE YELLOW (YELLOW); GLUCOSE, URINE (UA) AUTO NEGATIVE (NEGATIVE); KETONE, URINE AUTO NEGATIVE (NEGATIVE); LEUKOCYTE ESTERASE, URINE AUTO 3+ (NEGATIVE); MUCUS, URINE SMALL (NEGATIVE); NITRITE, URINE AUTO POSITIVE (NEGATIVE); PROTEIN, URINE AUTO NEGATIVE (NEGATIVE); RBC, URINE AUTO 3 /HPF (0-3); SPECIFIC GRAVITY URINE AUTO 1.015 (1.002-1.035); SQUAMOUS EPITHELIAL CELL UR AU 0 /HPF (0-6); UROBILINOGEN, URINE AUTO 0.2 mg/dL (0.0-2.0); WBC, URINE AUTO 50 /HPF (0-3)
== END ==
LOC: M LAB REF 12:14
PROVIDERS: ATTEND Physician Assistant Medical
DX: Z09 Encounter for follow-up examination after completed treatment for conditions other than malignant neoplasm (principal); Z87.440 Personal history of urinary (tract) infections; Z79.899 Other long term (current) drug therapy

== ENCOUNTER → 2023-10-11 | Outpatient (REF) | payer MEDICARE ==
[~2023-10-11] MED LIST changes: +CEFD1CAP9 PO; -CEFD300C42 PO; +DOXY-323; -DOXY-443; -OXYB5TAB11 PO; +OXYB5TAB14 PO
== END ==
LOC: M LAB REF 16:20
PROVIDERS: ATTEND Physician Assistant Medical
DX: N39.0 Urinary tract infection, site not specified (principal)

== ENCOUNTER → 2024-01-13 | Outpatient (REF) | payer MEDICARE ==
[2024-01-17 18:52] LABS: LYME TOTAL ANTIBODY CIA <= 0.90 Index (<=0.90)
== END ==
LOC: M LAB REF 16:19
PROVIDERS: ATTEND Physician Assistant Medical
DX: M25.50 Pain in unspecified joint (principal)

== ENCOUNTER → 2024-06-04 | Outpatient (REF) | payer MEDICARE ==
[~2024-06-04] MED LIST changes: -DOXY-323; +DOXY-441
== END ==
LOC: M LAB REF 13:22
PROVIDERS: ATTEND Physician Assistant Medical
DX: N39.0 Urinary tract infection, site not specified (principal)

== ENCOUNTER 2024-06-09 08:31 | Emergency (ER) | payer MEDICARE ==
[~2024-06-09] VITALS: Ht 170.2 cm; Wt 80.2 kg
[2024-06-09] MEDS ORDERED: ATOR1TAB21 (08:37)
[2024-06-09] MEDS ORDERED: METF-838 (08:37)
[2024-06-09 09:55] LABS: KETONE, URINE AUTO RFX NEGATIVE (NEGATIVE); NITRITE, URINE AUTO RFX NEGATIVE (NEGATIVE); RBC, URINE AUTO RFX 2 /HPF (0-3); SQUAM EPITHELIAL CELL UR AURFX 1 /HPF (0-6)
[2024-06-09 10:00] LABS: LEUKOCYTE ESTERASE UR AUTO RFX TRACE (NEGATIVE); WBC, URINE AUTO RFX 24 /HPF (0-3)
[2024-06-09 11:00] LABS: BASO # 0.1 10^3/uL (0.0-0.2); BASO % 0.5 % (0.0-1.0); EOS # 0.2 10^3/uL (0.0-0.5); EOS % 1.4 % (0.0-3.0); HEMATOCRIT 41.6 % (42.0-52.0); HEMOGLOBIN 14.1 g/dl (13.5-17.5); LYMPH # 2.1 10^3/uL (1.5-5.0); LYMPH % 18.4 % (24.0-44.0); MEAN CORPUSCULAR HEMOGLOBIN 29.7 pg (27.0-33.0); MEAN CORPUSCULAR HGB CONC 33.9 g/dl (32.0-36.5); MEAN CORPUSCULAR VOLUME 87.8 fl (80.0-96.0); MONO # 0.6 10^3/uL (0.0-0.8); MONO % 5.4 % (2.0-8.0); NEUTROPHILS # 8.4 10^3/uL (1.5-8.5); NEUTROPHILS % 73.4 % (36.0-66.0); PLATELET COUNT, AUTOMATED 405 10^3/uL (150-450); RED BLOOD COUNT 4.74 10^6/uL (4.30-6.10); WHITE BLOOD COUNT 11.4 10^3/uL (4.0-10.0)
[2024-06-09 11:07] LABS: BLOOD UREA NITROGEN 15 MG/DL (9-23); CALCIUM LEVEL 9.8 MG/DL (8.3-10.6); CARBON DIOXIDE LEVEL 26 MMOL/L (20-31); CHLORIDE LEVEL 101 MMOL/L (98-107); CREATININE FOR GFR 1.05 MG/DL (0.70-1.30); GLOMERULAR FILTRATION RATE > 60.0 (>49); GLUCOSE, FASTING 203 MG/DL (74-106); POTASSIUM SERUM 4.8 MMOL/L (3.5-5.1); SODIUM LEVEL 135 MMOL/L (136-145)
[2024-06-09] MEDS ORDERED: LEVO1TAB40 PO (11:14)
[2024-06-09 11:19] VITALS: BP 119/77; TEMP 97.8; O2SAT 99
== END 2024-06-09 11:21 | disposition home or self-care (01) ==
LOC: M ED 08:31
DX: N39.0 Urinary tract infection, site not specified (principal); I25.2 Old myocardial infarction; E11.9 Type 2 diabetes mellitus without complications; Z86.79 Personal history of other diseases of the circulatory system; Z79.82 Long term (current) use of aspirin; Z79.02 Long term (current) use of antithrombotics/antiplatelets; Z79.4 Long term (current) use of insulin; Z79.899 Other long term (current) drug therapy

== ENCOUNTER → 2024-07-17 | Outpatient (REF) | payer MEDICARE ==
[~2024-07-17] MED LIST changes: +LEVO1TAB40 PO; +METF-838
== END ==
LOC: M LAB REF 11:51
PROVIDERS: ATTEND Physician Assistant Medical
DX: N39.0 Urinary tract infection, site not specified (principal)

== ENCOUNTER → 2024-10-07 | Outpatient (REF) | payer MEDICARE ==
[~2024-10-07] MED LIST changes: -FLOM0.4C39 PO; +TAMS-18 PO
== END ==
LOC: M LAB REF 13:24
PROVIDERS: ATTEND Physician Assistant
DX: R30.0 Dysuria (principal)

== ENCOUNTER → 2025-01-11 | Outpatient (REF) | payer MEDICARE ==
[2025-01-11 13:09] LABS: APPEARANCE, URINE CLOUDY (CLEAR); BACTERIA, URINE AUTO 2+ (NEGATIVE); BILIRUBIN, URINE AUTO NEGATIVE (NEGATIVE); BLOOD, URINE BLOOD NEGATIVE (NEGATIVE); GLUCOSE, URINE (UA) AUTO NEGATIVE (NEGATIVE); KETONE, URINE AUTO NEGATIVE (NEGATIVE); LEUKOCYTE ESTERASE, URINE AUTO 3+ (NEGATIVE); MUCUS, URINE SMALL (NEGATIVE); NITRITE, URINE AUTO POSITIVE (NEGATIVE); PROTEIN, URINE AUTO NEGATIVE (NEGATIVE); RBC, URINE AUTO 21 /HPF (0-3); SPECIFIC GRAVITY URINE AUTO 1.014 (1.002-1.035); SQUAMOUS EPITHELIAL CELL UR AU 2 /HPF (0-6); UROBILINOGEN, URINE AUTO 0.2 mg/dL (0.0-2.0); WBC, URINE AUTO TNTC /HPF (0-3)
== END ==
LOC: M LAB REF 12:09
PROVIDERS: ATTEND Physician Assistant Medical
DX: Z87.440 Personal history of urinary (tract) infections (principal); N39.0 Urinary tract infection, site not specified